=== PATIENT | female | born 1945 | race Asian ===

== ENCOUNTER 2019-02-25 04:27 | Inpatient (IN) | payer SELFPAY ==
[2019-02-25] VITALS (19 sets, daily range): BP systolic 106–158
[~2019-02-25] VITALS: Ht 160 cm; Wt 100.2 kg
[2019-02-25] MEDS ORDERED: ASPIRIN 81 MG TAB.CHEW PO ONE (04:45)
[2019-02-25 05:06] LABS: BASOPHILS # (AUTO) 0.1 K/uL (0.0-0.2); BASOPHILS % (AUTO) 0.8 % (0.0-2.0); EOSINOPHILS # (AUTO) 0.1 K/uL (0.0-0.4); HEMATOCRIT 36.9 % (36-48); LYMPHOCYTES # (AUTO) 3.9 K/uL (1.0-5.5); LYMPHOCYTES % (AUTO) 35.6 % (20.5-51.5); MEAN CORPUSCULAR HEMOGLOBIN 30 pg (27-31); MEAN CORPUSCULAR HGB CONC 33 % (32-36); MEAN CORPUSCULAR VOLUME 90 fL (79.0-98.0); MONOCYTES % (AUTO) 9.4 % (1.7-9.3); NEUTROPHILS # (AUTO) 5.8 K/uL (1.8-7.7); NEUTROPHILS % (AUTO) 53.2 % (40.0-70.0); PLATELET COUNT (AUTO) 183 K/uL (130-430); RED BLOOD CELL COUNT(AUTO) 4.08 MIL/uL (4.2-6.2); RED CELL DISTRIBUTION WIDTH 14.4 % (9.0-15.0)
[2019-02-25 05:19] LABS: ANION GAP 13 (5-15); CALCIUM 8.8 mg/dL (8.4-11.0); CHLORIDE 103 mmol/L (98-107); CREATININE 3.31 mg/dL (0.55-1.30); GLUCOSE 140 mg/dL (70-99); POTASSIUM 5.5 mmol/L (3.5-5.1); SODIUM SERUM 134 mmol/L (136-145); UREA NITROGEN, BLOOD 57 mg/dL (8-21)
[2019-02-25 05:24] LABS: ALANINE AMINOTRANSFERASE 31 U/L (12-78); ALBUMIN 3.1 g/dL (3.4-4.8); ASPARTATE AMINOTRANSFERASE 30 U/L (10-37); TOTAL BILIRUBIN 0.3 mg/dL (0.0-1.0)
[2019-02-25 05:29] LABS: INR 1.1 (0.8-1.2); PROTHROMBIN TIME 10.8 SECS (9.5-12.5)
[2019-02-25] MEDS ORDERED: INSULIN REGULAR, HUMAN 10 UNITS/0.1 ML INJ IVP ONE (05:45)
[2019-02-25] MEDS ORDERED: DEXTROSE 50% JECT 50 ML DISP.SYRIN IVP ONE (05:45)
[2019-02-25] MEDS ORDERED: SODIUM BICARBONATE 8.4% JECT 50 MEQ/50 ML SYRINGE IVP ONE (05:45)
[2019-02-25] MEDS ORDERED: CALCIUM GLUCONATE 1 GM/10 ML VIAL IVP ONE (05:45)
[2019-02-25] MEDS ORDERED: SODIUM POLYSTYRENE SULFONATE 15 GM/60 ML UDBTL PO ONE (05:45)
[2019-02-25] MEDS ORDERED: SODIUM BICARBONATE 8.4% JECT 50 MEQ/50 ML SYRINGE ONE (05:46)
[2019-02-25] MEDS ORDERED: CALCIUM CHLORIDE 1 GM/10 ML DISP.SYRIN (14 mEq Ca++/SYR) ONE (05:46)
[2019-02-25] MEDS ORDERED: MELA3TAB69 PO (07:24)
[2019-02-25] MEDS ORDERED: [UNRECOGNIZED DRUG - OTHER] PO (07:24)
[2019-02-25] MEDS ORDERED: TELM80TA2 PO (07:24)
[2019-02-25] MEDS ORDERED: [UNRECOGNIZED DRUG - OTHER] PO (07:24)
[2019-02-25] MEDS ORDERED: panadol PO (07:24)
[2019-02-25] MEDS ORDERED: NEBI2.5T2 PO (07:24)
[2019-02-25] MEDS ORDERED: vitamin E PO (07:24)
[2019-02-25] MEDS ORDERED: ALLO100T PO (07:24)
[2019-02-25] MEDS ORDERED: [UNRECOGNIZED DRUG - OTHER] PO (07:24)
[2019-02-25] MEDS ORDERED: LASI20 IVP (07:24)
[2019-02-25] MEDS ORDERED: BIMA2.5D6 OP (07:24)
[2019-02-25] MEDS ORDERED: ROSU20TA2 PO (07:24)
[2019-02-25] MEDS: DOPamine PREMIX 250 ML IV PRN ×2 (11:34→11:35)
[2019-02-25 17:43] LABS: ANION GAP 8 (5-15); CHLORIDE 97 mmol/L (98-107); CREATININE 3.36 mg/dL (0.55-1.30); GLUCOSE 218 mg/dL (70-99); POTASSIUM 4.8 mmol/L (3.5-5.1); SODIUM SERUM 125 mmol/L (136-145); UREA NITROGEN, BLOOD 56 mg/dL (8-21)
[2019-02-25] MEDS ORDERED: MORPHINE 4 MG/ML INJ. SYRINGE IVP PRN (19:00)
[2019-02-25] MEDS ORDERED: MORPHINE 2 MG/ML INJ. SYRINGE IVP PRN (19:00)
[2019-02-25] MEDS: ACETAMINOPHEN 325 MG TABLET PO PRN (19:59)
[2019-02-25 21:17] LABS: BILIRUBIN,URINE NEGATIVE (NEGATIVE); BLOOD, URINE NEGATIVE (NEGATIVE); CLARITY/URINE SL HAZY (CLEAR); COLOR,URINE YELLOW (YELLOW); GLUCOSE,URINE NEGATIVE (NEGATIVE); KETONES,URINE NEGATIVE (NEGATIVE); LEUKOCYTE ESTERASE ,URINE NEGATIVE (NEGATIVE); NITRITE, URINE NEGATIVE (NEGATIVE); PROTEIN URINE 2+ (NEGATIVE); UROBILINOGEN,URINE 0.2 (0.2-1.0)
[2019-02-25 21:40] LABS: BACTERIA,URINE FEW /HPF (None Seen); COARSE GRANULAR CASTS,URINE 0-10 /LPF (None Seen); RBC,URINE NONE SEEN /HPF (0-3); URINE AMORPHOUS URATE 2+ /HPF (None Seen)
[2019-02-25 21:41] LABS: MUCUS,URINE None Seen /LPF (None Seen)
[2019-02-26] VITALS (24 sets, daily range): BP systolic 93–193
[2019-02-26] MEDS: DOPamine PREMIX 250 ML IV PRN (04:13)
[2019-02-26 06:09] LABS: BASOPHILS # (AUTO) 0.1 K/uL (0.0-0.2); BASOPHILS % (AUTO) 0.5 % (0.0-2.0); EOSINOPHILS # (AUTO) 0.1 K/uL (0.0-0.4); EOSINOPHILS % (AUTO) 0.7 % (0.0-4.0); HEMATOCRIT 36.9 % (36-48); HEMOGLOBIN 11.7 g/dL (12.0-16.0); LYMPHOCYTES # (AUTO) 2.1 K/uL (1.0-5.5); LYMPHOCYTES % (AUTO) 17.1 % (20.5-51.5); MEAN CORPUSCULAR HEMOGLOBIN 29 pg (27-31); MEAN CORPUSCULAR HGB CONC 32 % (32-36); MEAN CORPUSCULAR VOLUME 90 fL (79.0-98.0); MONOCYTES % (AUTO) 8.3 % (1.7-9.3); NEUTROPHILS # (AUTO) 8.9 K/uL (1.8-7.7); NEUTROPHILS % (AUTO) 73.4 % (40.0-70.0); PLATELET COUNT (AUTO) 157 K/uL (130-430); RED BLOOD CELL COUNT(AUTO) 4.09 MIL/uL (4.2-6.2); RED CELL DISTRIBUTION WIDTH 14.1 % (9.0-15.0); WHITE BLOOD COUNT (AUTO) 12.1 K/uL (4.8-10.8)
[2019-02-26 06:35] LABS: ALANINE AMINOTRANSFERASE 27 U/L (12-78); ANION GAP 11 (5-15); ASPARTATE AMINOTRANSFERASE 23 U/L (10-37); CHLORIDE 103 mmol/L (98-107); CREATININE 3.26 mg/dL (0.55-1.30); GLUCOSE 149 mg/dL (70-99); POTASSIUM 5.1 mmol/L (3.5-5.1); SODIUM SERUM 135 mmol/L (136-145); THYROID STIMULATING HORMONE 1.49 uIu/mL (0.36-3.74); TOTAL BILIRUBIN 0.5 mg/dL (0.0-1.0); UREA NITROGEN, BLOOD 57 mg/dL (8-21)
[2019-02-26 07:13] LABS: CHOLESTEROL 175 mg/dL (<200); HDL CHOLESTEROL 87 mg/dL (>55); LDL CHOLESTEROL 73 mg/dL (<100); TRIGLYCERIDES 46 mg/dL (30-150)
[2019-02-26] MEDS: ACETAMINOPHEN 325 MG TABLET PO PRN (17:11)
[2019-02-26] MEDS ORDERED: hydrALAZINE HCL 25 MG TABLET ONE (22:28)
[2019-02-26] MEDS ORDERED: hydrALAZINE HCL 25 MG TABLET PO SCH (22:30)
[2019-02-27] VITALS (16 sets, daily range): BP systolic 108–186
[2019-02-27 05:51] LABS: BASOPHILS % (AUTO) 0.3 % (0.0-2.0); EOSINOPHILS # (AUTO) 0.1 K/uL (0.0-0.4); EOSINOPHILS % (AUTO) 0.5 % (0.0-4.0); HEMATOCRIT 36.8 % (36-48); LYMPHOCYTES # (AUTO) 2.3 K/uL (1.0-5.5); LYMPHOCYTES % (AUTO) 19.1 % (20.5-51.5); MEAN CORPUSCULAR HEMOGLOBIN 29 pg (27-31); MEAN CORPUSCULAR HGB CONC 33 % (32-36); MEAN CORPUSCULAR VOLUME 89 fL (79.0-98.0); MONOCYTES # (AUTO) 1.2 K/uL (0.0-1.0); MONOCYTES % (AUTO) 10.1 % (1.7-9.3); NEUTROPHILS # (AUTO) 8.3 K/uL (1.8-7.7); PLATELET COUNT (AUTO) 136 K/uL (130-430); RED BLOOD CELL COUNT(AUTO) 4.14 MIL/uL (4.2-6.2); RED CELL DISTRIBUTION WIDTH 14.4 % (9.0-15.0); WHITE BLOOD COUNT (AUTO) 11.9 K/uL (4.8-10.8)
[2019-02-27 06:10] LABS: ALANINE AMINOTRANSFERASE 25 U/L (12-78); ALBUMIN 2.6 g/dL (3.4-4.8); ANION GAP 5 (5-15); ASPARTATE AMINOTRANSFERASE 21 U/L (10-37); CALCIUM 9.3 mg/dL (8.4-11.0); CHLORIDE 106 mmol/L (98-107); CREATININE 2.76 mg/dL (0.55-1.30); GLUCOSE 116 mg/dL (70-99); POTASSIUM 5.1 mmol/L (3.5-5.1); SODIUM SERUM 134 mmol/L (136-145); TOTAL BILIRUBIN 0.7 mg/dL (0.0-1.0); UREA NITROGEN, BLOOD 53 mg/dL (8-21)
[2019-02-27] MEDS: hydrALAZINE HCL 25 MG TABLET PO SCH ×3 (06:16→22:13)
[2019-02-27] MEDS: amLODIPine BESYLATE 5 MG TABLET PO SCH (10:29)
[2019-02-28] VITALS: BP_SYST 153
[2019-02-28 00:21] VITALS: BP_SYST 127
[2019-02-28] MEDS: hydrALAZINE HCL 25 MG TABLET PO SCH ×3 (07:17→21:17)
[2019-02-28 07:52] LABS: BASOPHILS # (AUTO) 0.1 K/uL (0.0-0.2); BASOPHILS % (AUTO) 0.6 % (0.0-2.0); EOSINOPHILS # (AUTO) 0.3 K/uL (0.0-0.4); HEMATOCRIT 36.1 % (36-48); HEMOGLOBIN 11.8 g/dL (12.0-16.0); LYMPHOCYTES # (AUTO) 2.3 K/uL (1.0-5.5); LYMPHOCYTES % (AUTO) 25.3 % (20.5-51.5); MEAN CORPUSCULAR HEMOGLOBIN 29 pg (27-31); MEAN CORPUSCULAR HGB CONC 33 % (32-36); MEAN CORPUSCULAR VOLUME 90 fL (79.0-98.0); MONOCYTES % (AUTO) 11.4 % (1.7-9.3); NEUTROPHILS # (AUTO) 5.3 K/uL (1.8-7.7); NEUTROPHILS % (AUTO) 59.7 % (40.0-70.0); PLATELET COUNT (AUTO) 152 K/uL (130-430); RED BLOOD CELL COUNT(AUTO) 4.03 MIL/uL (4.2-6.2); RED CELL DISTRIBUTION WIDTH 14.3 % (9.0-15.0)
[2019-02-28 07:55] VITALS: BP_SYST 168
[2019-02-28 08:12] LABS: ALANINE AMINOTRANSFERASE 11 U/L (12-78); ALBUMIN 2.4 g/dL (3.4-4.8); ANION GAP 7 (5-15); ASPARTATE AMINOTRANSFERASE 24 U/L (10-37); CALCIUM 8.7 mg/dL (8.4-11.0); CHLORIDE 111 mmol/L (98-107); CREATININE 2.58 mg/dL (0.55-1.30); GLUCOSE 107 mg/dL (70-99); POTASSIUM 5.4 mmol/L (3.5-5.1); SODIUM SERUM 141 mmol/L (136-145); TOTAL BILIRUBIN 0.6 mg/dL (0.0-1.0); UREA NITROGEN, BLOOD 60 mg/dL (8-21)
[2019-02-28] MEDS: amLODIPine BESYLATE 5 MG TABLET PO SCH (09:20)
[2019-02-28 12:00] VITALS: BP_SYST 153
[2019-02-28] MEDS ORDERED: AMIODARONE HCL 200 MG TABLET PO ONE (15:45)
[2019-02-28] MEDS: ACETAMINOPHEN 325 MG TABLET PO PRN (15:59)
[2019-02-28 17:10] VITALS: BP_SYST 156
[2019-02-28 21:15] VITALS: BP_SYST 127
[2019-03-01 00:10] VITALS: BP_SYST 146
[2019-03-01 05:19] VITALS: BP_SYST 149
[2019-03-01] MEDS: hydrALAZINE HCL 25 MG TABLET PO SCH ×3 (05:21→22:41)
[2019-03-01 07:52] VITALS: BP_SYST 137
[2019-03-01] MEDS: amLODIPine BESYLATE 5 MG TABLET PO SCH (09:13)
[2019-03-01] MEDS: AMIODARONE HCL 200 MG TABLET PO SCH (09:14)
[2019-03-01 11:55] LABS: ANION GAP 10 (5-15); CHLORIDE 109 mmol/L (98-107); CREATININE 2.52 mg/dL (0.55-1.30); GLUCOSE 95 mg/dL (70-99); POTASSIUM 5.4 mmol/L (3.5-5.1); UREA NITROGEN, BLOOD 66 mg/dL (8-21)
[2019-03-01 11:57] LABS: SODIUM SERUM 141 mmol/L (136-145)
[2019-03-01 11:58] VITALS: BP_SYST 151
[2019-03-01] MEDS ORDERED: VANCOMYCIN HCL 1 GM/NS PREMIX 250 ML IV ONE (13:00)
[2019-03-01 16:53] VITALS: BP_SYST 150
[2019-03-01] MEDS ORDERED: MEPERIDINE HCL/PF 25 MG/ML DISP.SYRIN IVP PRN (17:45)
[2019-03-01] MEDS ORDERED: HYDROmorphone 2 MG/ML VIAL IVP PRN ×2 (17:45)
[2019-03-01] MEDS ORDERED: HYDROmorphone 1 MG INJ. 1 MG/ML AMPUL IVP PRN (17:45)
[2019-03-01] MEDS ORDERED: LR 1,000 ML IV SCH (17:45)
[2019-03-01] MEDS ORDERED: POLYMYXIN 500,000/BACIT.10,000 UNITS in NS IRR 1 L IR ONE (19:01)
[2019-03-01] MEDS ORDERED: NS 250 ML IV.SOLN IV ONE (21:15)
[2019-03-01] MEDS ORDERED: SODIUM BICARBONATE 4% (NEUT) 5 ML VIAL ONE (21:15)
[2019-03-01] MEDS ORDERED: LR 1,000 ML IV.SOLN IV ONE (21:15)
[2019-03-01] MEDS ORDERED: AMIODARONE HCL 150 MG/3ML VIAL ONE (21:15)
[2019-03-01] MEDS ORDERED: VANCOMYCIN HCL 1000 MG/VIAL IV ONE (21:15)
[2019-03-01] MEDS ORDERED: MIDAZOLAM HCL 5 MG/ML VIAL (VERSED) IV ONE (21:15)
[2019-03-01] MEDS ORDERED: PROPOFOL 200MG/ 20ML VIAL (DIPRIVAN) IV ONE (21:15)
[2019-03-02 02:34] VITALS: BP_SYST 121
[2019-03-02] MEDS: hydrALAZINE HCL 25 MG TABLET PO SCH ×3 (06:07→21:43)
[2019-03-02 07:45] LABS: BASOPHILS # (AUTO) 0.1 K/uL (0.0-0.2); BASOPHILS % (AUTO) 0.7 % (0.0-2.0); EOSINOPHILS # (AUTO) 0.2 K/uL (0.0-0.4); EOSINOPHILS % (AUTO) 2.5 % (0.0-4.0); HEMATOCRIT 35.3 % (36-48); HEMOGLOBIN 11.4 g/dL (12.0-16.0); LYMPHOCYTES # (AUTO) 2.2 K/uL (1.0-5.5); LYMPHOCYTES % (AUTO) 25.9 % (20.5-51.5); MEAN CORPUSCULAR HEMOGLOBIN 29 pg (27-31); MEAN CORPUSCULAR HGB CONC 32 % (32-36); MEAN CORPUSCULAR VOLUME 90 fL (79.0-98.0); MONOCYTES # (AUTO) 1.1 K/uL (0.0-1.0); MONOCYTES % (AUTO) 12.5 % (1.7-9.3); NEUTROPHILS # (AUTO) 4.9 K/uL (1.8-7.7); NEUTROPHILS % (AUTO) 58.4 % (40.0-70.0); PLATELET COUNT (AUTO) 171 K/uL (130-430); RED BLOOD CELL COUNT(AUTO) 3.91 MIL/uL (4.2-6.2); RED CELL DISTRIBUTION WIDTH 14.6 % (9.0-15.0); WHITE BLOOD COUNT (AUTO) 8.5 K/uL (4.8-10.8)
[2019-03-02 07:54] LABS: ALANINE AMINOTRANSFERASE 24 U/L (12-78); ALBUMIN 2.3 g/dL (3.4-4.8); ANION GAP 8 (5-15); ASPARTATE AMINOTRANSFERASE 23 U/L (10-37); CALCIUM 8.8 mg/dL (8.4-11.0); CHLORIDE 110 mmol/L (98-107); CREATININE 2.41 mg/dL (0.55-1.30); GLUCOSE 142 mg/dL (70-99); POTASSIUM 4.8 mmol/L (3.5-5.1); SODIUM SERUM 141 mmol/L (136-145); TOTAL BILIRUBIN 0.4 mg/dL (0.0-1.0); UREA NITROGEN, BLOOD 59 mg/dL (8-21)
[2019-03-02 08:10] VITALS: BP_SYST 114
[2019-03-02 08:15] VITALS: BP_SYST 114
[2019-03-02] MEDS: ACETAMINOPHEN 325 MG TABLET PO PRN ×2 (09:16→19:14)
[2019-03-02] MEDS: AMIODARONE HCL 200 MG TABLET PO SCH (09:35)
[2019-03-02] MEDS: amLODIPine BESYLATE 5 MG TABLET PO SCH (09:35)
[2019-03-02] MEDS ORDERED: VANCOMYCIN HCL 1 GM/NS PREMIX 250 ML IV ONE (11:00)
[2019-03-02 13:08] VITALS: BP_SYST 134
[2019-03-02] MEDS ORDERED: POLYMYXIN 500,000/BACIT.10,000 UNITS in NS IRR 1 L IR ONE (14:33)
[2019-03-02] MEDS ORDERED: NS 50 ML BAG IV ONE (15:50)
[2019-03-02] MEDS ORDERED: LR 1,000 ML IV.SOLN IV ONE (15:50)
[2019-03-02] MEDS ORDERED: MIDAZOLAM HCL 5 MG/ML VIAL (VERSED) IV ONE (15:50)
[2019-03-02] MEDS ORDERED: PROPOFOL 200MG/ 20ML VIAL (DIPRIVAN) IV ONE (15:50)
[2019-03-02] MEDS ORDERED: NS IRRIG SOLN 1000 ML IR ONE (15:50)
[2019-03-02 16:35] VITALS: BP_SYST 149
[2019-03-02] MEDS ORDERED: LR 1,000 ML IV SCH (17:08)
[2019-03-02] MEDS ORDERED: HYDROmorphone 1 MG INJ. 1 MG/ML AMPUL IVP PRN (17:15)
[2019-03-02] MEDS ORDERED: MEPERIDINE HCL/PF 25 MG/ML DISP.SYRIN IVP PRN (17:15)
[2019-03-02] MEDS ORDERED: HYDROmorphone 2 MG/ML VIAL IVP PRN ×2 (17:15)
[2019-03-02] MEDS ORDERED: CEFAZOLIN 1 GM IVPB PREMIX 50 ML IV ONE (21:16)
[2019-03-02] MEDS: CEFAZOLIN 1 GM IVPB PREMIX 50 ML IV SCH (21:43)
[2019-03-02] MEDS ORDERED: CEFAZOLIN 2 GM IVPB PREMIX 50 ML IV SCH (22:00)
[2019-03-03 00:47] VITALS: BP_SYST 132
[2019-03-03] MEDS: hydrALAZINE HCL 25 MG TABLET PO SCH (05:55)
[2019-03-03] MEDS: ACETAMINOPHEN 325 MG TABLET PO PRN ×2 (05:59→12:42)
[2019-03-03 07:35] LABS: BASOPHILS # (AUTO) 0.1 K/uL (0.0-0.2); BASOPHILS % (AUTO) 0.8 % (0.0-2.0); EOSINOPHILS # (AUTO) 0.3 K/uL (0.0-0.4); EOSINOPHILS % (AUTO) 2.9 % (0.0-4.0); HEMATOCRIT 36.9 % (36-48); HEMOGLOBIN 11.9 g/dL (12.0-16.0); LYMPHOCYTES # (AUTO) 2.3 K/uL (1.0-5.5); LYMPHOCYTES % (AUTO) 26.7 % (20.5-51.5); MEAN CORPUSCULAR HEMOGLOBIN 29 pg (27-31); MEAN CORPUSCULAR HGB CONC 32 % (32-36); MEAN CORPUSCULAR VOLUME 90 fL (79.0-98.0); MONOCYTES % (AUTO) 11.7 % (1.7-9.3); NEUTROPHILS % (AUTO) 57.9 % (40.0-70.0); PLATELET COUNT (AUTO) 152 K/uL (130-430); RED BLOOD CELL COUNT(AUTO) 4.09 MIL/uL (4.2-6.2); RED CELL DISTRIBUTION WIDTH 14.4 % (9.0-15.0); WHITE BLOOD COUNT (AUTO) 8.6 K/uL (4.8-10.8)
[2019-03-03 07:40] LABS: ANION GAP 11 (5-15); CALCIUM 9.1 mg/dL (8.4-11.0); CHLORIDE 108 mmol/L (98-107); CREATININE 2.17 mg/dL (0.55-1.30); GLUCOSE 113 mg/dL (70-99); POTASSIUM 4.9 mmol/L (3.5-5.1); SODIUM SERUM 140 mmol/L (136-145); UREA NITROGEN, BLOOD 47 mg/dL (8-21)
[2019-03-03 08:30] VITALS: BP_SYST 154
[2019-03-03] MEDS: amLODIPine BESYLATE 5 MG TABLET PO SCH (09:47)
[2019-03-03] MEDS: AMIODARONE HCL 200 MG TABLET PO SCH (09:47)
[2019-03-03] MEDS: CEFAZOLIN 1 GM IVPB PREMIX 50 ML IV SCH (09:48)
[2019-03-03] MEDS ORDERED: ALLOPURINOL 100 MG TABLET (ZYLOPRIM) PO ONE (10:45)
[2019-03-03] MEDS ORDERED: METOPROLOL TARTRATE 25 MG TABLET PO ONE (10:45)
[2019-03-03] MEDS ORDERED: FUROSEMIDE 20 MG TABLET PO ONE (10:45)
[2019-03-03 11:20] VITALS: BP_SYST 141
[2019-03-03 12:00] VITALS: BP_SYST 154
[2019-03-03] MEDS ORDERED: NEBI5TAB3 PO (12:53)
[2019-03-03] MEDS ORDERED: AMIO100T4 PO (12:54)
[2019-03-03] MEDS ORDERED: HYDR-4038 PO (12:54)
[2019-03-03 13:15] VITALS: BP_SYST 154
[2019-03-03] MEDS ORDERED: METOPROLOL TARTRATE 25 MG TABLET PO SCH (21:00)
[2019-03-04] MEDS ORDERED: ALLOPURINOL 100 MG TABLET (ZYLOPRIM) PO SCH (09:00)
[2019-03-04] MEDS ORDERED: FUROSEMIDE 20 MG TABLET PO SCH (09:00)
== END 2019-03-03 14:00 | disposition home or self-care (01) | DRG 242 ==
LOC: SED 04:27 → SIC 07:21 → STU 02-27 13:11
PROVIDERS: ADMIT Internal Medicine Hospice and Palliative Medicine; ATTEND Internal Medicine Hospice and Palliative Medicine
PROC: 02HV33Z Insertion of Infusion Device into Superior Vena Cava, Percutaneous Approach (ICD-10-PCS; 2019-02-25)
PROC: B548ZZA Ultrasonography of Superior Vena Cava, Guidance (ICD-10-PCS; 2019-02-25)
PROC: 02HK3JZ Insertion of Pacemaker Lead into Right Ventricle, Percutaneous Approach (ICD-10-PCS; 2019-03-01)
PROC: 02H63JZ Insertion of Pacemaker Lead into Right Atrium, Percutaneous Approach (ICD-10-PCS; 2019-03-01)
PROC: 0JH606Z Insertion of Pacemaker, Dual Chamber into Chest Subcutaneous Tissue and Fascia, Open Approach (ICD-10-PCS; principal; 2019-03-01 16:30)
PROC: 02WA3MZ Revision of Cardiac Lead in Heart, Percutaneous Approach (ICD-10-PCS; 2019-03-02)
DX: I49.5 Sick sinus syndrome (principal); N18.6 End stage renal disease; N17.0 Acute kidney failure with tubular necrosis; I47.1 Supraventricular tachycardia; I13.2 Hypertensive heart and chronic kidney disease with heart failure and with stage 5 chronic kidney disease, or end stage renal disease; T82.120A Displacement of cardiac electrode, initial encounter; E78.5 Hyperlipidemia, unspecified; E87.5 Hyperkalemia; F32.9 Major depressive disorder, single episode, unspecified; G47.33 Obstructive sleep apnea (adult) (pediatric); I50.9 Heart failure, unspecified; E66.01 Morbid (severe) obesity due to excess calories; R80.9 Proteinuria, unspecified; R33.9 Retention of urine, unspecified; M19.90 Unspecified osteoarthritis, unspecified site; Y83.8 Other surgical procedures as the cause of abnormal reaction of the patient, or of later complication, without mention of misadventure at the time of the procedure; Y92.238 Other place in hospital as the place of occurrence of the external cause; Z79.899 Other long term (current) drug therapy
CPT/HCPCS: 36415; 71045; 76000; 76770; 80048; 80053; 80061; 81000-TC; 83880; 84443-TC; 84484; 85025; 85379; 85610-TC; 85730-TC; 87081; 93005; 93306; 94660; 94760; 96374; 96375; 99291; A4565; C1751; C1785; C1894; C1898; G0378; J0282; J0610; J0690; J1265; J2250; J2704; J3370; J7050; J7060; J7120